=== PATIENT | male | born 1970 | race African-American/Black ===

== ENCOUNTER 2025-01-07 18:38 | Emergency (ER) | payer SELFPAY ==
[2025-01-07 18:43] VITALS: BP 145/100
--- NOTE | 2025-01-07 20:11 | ED.GENMED ---
History of Present Illness
General
Chief Complaint: Head Injury
Source: patient
Exam Limitations: none
Time Seen by Provider: 01/07/25 19:50
History of Present Illness
History of Present Illness:
See MDM
Past History
Past History
ED Past Medical History: None
ED Past Surgical History: None
Social History
Tobacco: Non-smoker
Alcohol: None
Phy Exam
Physical Exam
Physical Exam:
See MDM
Course
Orders/Labs/Results
Orders:
Orders
01/07/25 19:56
Knee, Right 4 or More Views [CR Knee- Right 4 Or More View*] Urgent
Comment:
Reason For Exam: fall, R knee pain
Vital Signs
Initial and Last Documented VS:
Initial Vital Signs
Temp Pulse Resp BP Pulse Ox
98.2 F 91 16 145/100 95
01/07/25 18:43 01/07/25 18:43 01/07/25 18:43 01/07/25 18:43 01/07/25 18:43
Last Documented Vital Signs
Temp Pulse Resp BP Pulse Ox
98.2 F 91 16 145/100 95
01/07/25 18:43 01/07/25 18:43 01/07/25 18:43 01/07/25 18:43 01/07/25 20:13
Procedures
Laceration Closure
Left Anterior Lateral Scalp:
Status of Wound: clean
Size of Wound in cm: 3
Description of Wound Edges: sharp
Preparation: cleaned with soap & water
Anesthesia: 1% Lidocaine with epi
Revision/Debridement: routine- no revision
Wound exploration: explored to base- no FB
Type of Closure: single layer closure
Skin Closure Material: 4-0 vicryl
Number of sutures: 4
MDM/Problems Addressed
Differential Diagnosis Includes:
HPI and MDM Narrative:
54-year-old male presenting with left scalp injury and right knee pain. Patient is in the [employer]. He was [place] [employer] and a machine gun fell down and hit him on the left part of his scalp. He denies head injury or loss of consciousness.
Patient states his tetanus is up-to-date. After the injury, patient states he fell down and landed on his right knee. He also complains of right knee pain.
I gave the patient the option of niya versus stitches. He opted for stitches. 4 dissolvable stitches placed in the scalp.
Given how well-appearing he is, we discussed low utility of CT head. Patient does agree but understands the risk of missing scalp fracture versus intracranial hemorrhage
Given the right knee injury, will obtain x-ray
Physical exam
General: Well appearing and non-toxic
HEENT: protecting airway. 3 cm laceration to left scalp
Neck: appears supple
CV: No evidence of cyanosis
Resp: No accessory muscle use
Abd: Non-distended
Extremities: No deformities. Mild tenderness to right patella without effusion
Neuro: alert
Psych: Normal affect
Skin: Intact
Problems Addressed including Acute and Chronic Conditions affecting care:
1. Scalp laceration
Acuity: acute
Prognosis: stable
Details: 4 dissolvable stitches placed
2. Right knee injury
Acuity: acute
Prognosis: stable
Details: Will obtain x-ray
Differential Diagnosis (but not limited to): Concussion, scalp laceration, contusion
Testing considered: CT head
Drug therapy (if applicable): OTC meds, please see d/c instruction regarding Rx drugs
Amount and/or Complexity of Data Reviewed
Clinical info obtained from: Patient
External data reviewed: N/A
Labs I independently reviewed (but not limited to): N/A
Radiology: X-ray independently reviewed: Arthritic changes noted to right knee. No fracture
Pulse Ox: not hypoxic
EKG independently reviewed: N/A
[place]: N/A
Critical Care: N/A
Risk of Complication:
Social Determinants of health: Good social support
Discussed with other providers: N/A
Escalation of Care includes Admit/Obs: After being observed in the Emergency Department, pt stable for discharge.
Occasional wrong word or 'sound a like' substitutions may have occurred due to the inherent limitations of voice recognition software. Read the chart carefully and recognize, using context, where substitutions have occurred.
*Pulse Oximetry
SaO2: 95
Oxygen Mode of Delivery: Room air
Patient hypoxic: no
*Critical Care Note
Total Time (30-74mins, 75-104mins- exclusive of procedures): Not Applicable
ED Attending Note
-
Portions of this chart may have been created with voice recognition software.� Occasional wrong word or��sound alike� substitutions may have occurred due to the inherent limitations of voice recognition software.
Discharge Plan
Departure
Patient Disposition: Home (Routine Discharge)
Date of Disposition: 01/07/25
Time of Disposition: 20:35
Patient with high blood pressure during this ER visit?: Yes
Discharge Problem:
Laceration of scalp
Instructions: Laceration Repair With Stitches (DC), BLOOD PRESSURE
Activity Restrictions/Additional Instructions:
The scalp laceration was fixed with dissolvable stitches. They will fall out on their own.
Your knee x-ray shows evidence of arthritis. There is no evidence of fracture.
Please return for any worsening symptoms.
You may return at any time if you have further concerns.
Please follow up with your doctor at the first available appointment, preferably this week.
Interventions
Interventions:
*Risk Screen - Suicide Last Done: 01/07/25 18:45
*Neglect/Abuse Screening Last Done: 01/07/25 18:45
Discharge Date and Time
Print Language: SERBIAN
== END 2025-01-07 20:45 | disposition home or self-care (01) ==
LOC: EMR 18:38
PROVIDERS: EMERGENCY PHYSICIAN Student in an Organized Health Care Education/Training Program
DX: S01.01XA Laceration without foreign body of scalp, initial encounter (principal); W19.XXXA Unspecified fall, initial encounter
CPT/HCPCS: 99283; 12002; 73564